=== PATIENT | male | born 1985 | race Caucasian/White ===

== ENCOUNTER 2017-01-08 10:35 | Emergency (ER) | payer OTHER ==
[~2017-01-08] VITALS: Ht 180.3 cm; Wt 99.8 kg
[2017-01-08 11:10] LABS: RDW 13.3 % (10.5-14.5)
[2017-01-08 11:12] LABS: HEMATOCRIT 42.7 % (42.0-52.0); HEMOGLOBIN 14.7 gm/dL (14.0-18.0); MCH 31.3 pg (26.0-34.0); MCHC 34.4 g/dL (28.0-37.0); PLATELET COUNT 290 thou/uL (150-400); RBC 4.69 mil/uL (4.50-6.00); WBC 14.4 thou/uL (4.0-11.0)
[2017-01-08 11:13] LABS: MANUAL DIFF YES
[2017-01-08 11:21] LABS: CALCIUM 8.8 mg/dL (8.5-10.1); CREATININE 0.9 mg/dL (0.7-1.3); POTASSIUM 3.8 mmol/L (3.5-5.1)
[2017-01-08 11:25] LABS: ALBUMIN 3.4 g/dL (3.4-5.0); DIRECT BILIRUBIN 0.2 mg/dL (<0.1-0.3); TOTAL BILIRUBIN 0.7 mg/dL (<0.1-1.0); TOTAL PROTEIN 7.4 g/dL (6.4-8.2)
[2017-01-08 11:53] LABS: ABSOLUTE NEUTROPHILS 10.8 thou/uL (1.4-8.2); TOTAL CELL COUNT 100
[2017-01-08] MEDS ORDERED: CLEOCIN HCL300 MG PO ×2 (13:29→13:32)
[2017-01-08] MEDS ORDERED: NORCO 5-325 TA1 EACH PO ×2 (13:30→13:32)
[2017-01-08 13:50] VITALS: BP 125/65
== END 2017-01-08 13:53 | disposition home or self-care (01) ==
LOC: ER 10:35
PROVIDERS: Nurse Practitioner
DX: J36 Peritonsillar abscess (principal); Z88.0 Allergy status to penicillin; Z88.2 Allergy status to sulfonamides